=== PATIENT | female | born 1950 | race Caucasian/White ===

== ENCOUNTER 2018-08-08 11:26 | Emergency (ER) | payer MEDICARE ==
[~2018-08-08] VITALS: Ht 162.6 cm; Wt 75.0 kg
[2018-08-08] MEDS ORDERED: LISI-661 PO (11:45)
[2018-08-08] MEDS ORDERED: LEVO125 PO (11:45)
[2018-08-08] MEDS ORDERED: SIMV-259 PO (11:45)
[2018-08-08 14:12] VITALS: BP 164/87
[2018-08-08] MEDS ORDERED: HYDROCODONE/ACETAMINOPHEN 5-325 MG TABLET PO ONE (14:15)
== END 2018-08-08 14:31 | disposition home or self-care (01) ==
LOC: EMS 11:27
DX: J02.9 Acute pharyngitis, unspecified (principal); J40 Bronchitis, not specified as acute or chronic; I10 Essential (primary) hypertension; E78.00 Pure hypercholesterolemia, unspecified; E05.90 Thyrotoxicosis, unspecified without thyrotoxic crisis or storm; Z79.899 Other long term (current) drug therapy
CPT/HCPCS: 93005